=== PATIENT | female | born 1940 | race Caucasian/White ===

== ENCOUNTER 2016-10-08 13:44 | Inpatient (IN) | payer MEDICARE, BC ==
[~2016-10-08] VITALS: Ht 157.5 cm; Wt 55.6 kg
[2016-10-08 13:44] VITALS: BP 127/62; PULSE 84; RESP 16; TEMP 97; O2SAT 96
[2016-10-08] MEDS ORDERED: ASPI81CH CHEW (14:03)
[2016-10-08] MEDS ORDERED: CALC8.5C CHEW (14:03)
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
[2016-10-08] MEDS ORDERED: ONDANSETRON HCL 4 MG/2 ML VIAL IV PRN (15:45)
[2016-10-08] MEDS ORDERED: CHLORHEXIDINE GLUCONATE 2 % 1 PACK (2 CLOTHS) TOP PRN (15:45)
[2016-10-08] MEDS ORDERED: ENALAPRILAT 1.25 MG/ML VIAL IV PRN (15:45)
[2016-10-08] MEDS ORDERED: MISCELLANEOUS NURSING INFORMATION XX SCH (15:45)
[2016-10-08] MEDS ORDERED: ACETAMINOPHEN 325 MG TAB PO PRN (15:45)
[2016-10-08] MEDS ORDERED: SODIUM CHLORIDE 0.9% FLUSH 5 ML FLUSH IVF PRN (15:45)
[2016-10-08 16:00] VITALS: BP 129/62; PULSE 74; PULSE 89; RESP 20; TEMP 97.9; O2SAT 98
[2016-10-08] MEDS: SODIUM CHLOR 0.9% 1000 ML INJ 1,000 ML IV SCH (16:43)
[2016-10-08] MEDS ORDERED: PANTOPRAZOLE SODIUM 40 MG VIAL IVP SCH (17:00)
[2016-10-08 17:01] LABS: BACTERIA, URINE RARE /hpf; BLOOD, URINE SMALL (NEG); COMMENT (UR) CULTURE INDICATED; CULTURE IF INDICATED CULTURE INDICATED; GLUCOSE,URINE TRACE mg/dL (NEG); KETONE, URINE 10 mg/dL (NEG); NITRITE,URINE NEG (NEG); PH, URINE 7.5 (5.0-8.5); SQUAMOUS EPITHELIAL CELL URINE 2 /hpf (0-5); URINE COLOR LIGHT-YELLOW (YELLW/STRAW)
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
[2016-10-08 18:00] VITALS: PULSE 71
[2016-10-08] MEDS: cefTRIAXone INJ 1,000 MG in SODIUM CHLORIDE 0.9% INJ 100 ML IV SCH (18:19)
--- NOTE | 2016-10-08 19:17 | RADRPT ---
EXAM DATE/TIME: 10/08/2016 17:44 [facility] COMPARISON: No previous studies available for comparison. INDICATIONS : Left hand pain. Pain near fifth metacarpal. MEDICAL HISTORY : None. SURGICAL HISTORY : None. ENCOUNTER: Initial ACUITY: 1 day PAIN SCORE: 5/10 LOCATION: Left Hand. FINDINGS: AP, lateral and oblique views of the left hand were obtained. The views are mildly oblique and there is overlying artifact. There is a fracture deformity involving the base of the fifth metacarpal. The phalanges appear grossly intact. The carpus appears intact as well. There is an old fracture deformit y of the distal radius. There is mild osteopenia and degenerative changes. CONCLUSION: 1. Fracture deformity involving the base of the fifth metacarpal. 2. Old fracture deformity involving the distal radius. 3. Oblique views with overlying artifact. Silverio Ford MD on October 08, 2016 at 19:14 Board Certified Radiologist. This report was verified electronically.
--- NOTE | 2016-10-08 19:18 | RADRPT ---
EXAM DATE/TIME: 10/08/2016 17:51 [facility] COMPARISON: No previous studies available for comparison. INDICATIONS : Left wrist pain. MEDICAL HISTORY : None. SURGICAL HISTORY : None. ENCOUNTER: Initial ACUITY: 1 day PAIN SCORE: 5/10 LOCATION: Left wrist. FINDINGS: AP, lateral and oblique views of the left wrist were obtained. The lateral and oblique views are mild ly rotated. There is overlying artifact. A fracture deformity of the base of the fifth metacarpal is again visualized. There is an old fracture deformity of the distal radius. There are degenerative jorge nges in the carpus with sclerosis. There is diffuse osteopenia. CONCLUSION: 1. Fracture deformity involving the base of the fifth metacarpal. 2. Old fracture deformity of the distal radius. 3. Osteopenia and degenerative change. Silverio Ford MD on October 08, 2016 at 19:15 Board Certified Radiologist. This report was verified electronically.
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
[2016-10-08 20:00] VITALS: BP 135/62; PULSE 80; PULSE 91; RESP 21; TEMP 98.3; O2SAT 96
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
[2016-10-08] MEDS: MAGNESIUM HYDROXIDE SUSP 30 ML CUP PO SCH ×2 (21:00→21:06)
[2016-10-08] MEDS: DOCUSATE SODIUM 100 MG CAP PO SCH ×2 (21:00→21:06)
[2016-10-08 22:00] VITALS: PULSE 76
[2016-10-08 22:56] VITALS: O2SAT 99
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
[2016-10-09] VITALS (13 sets, daily range): BP systolic 116–140; BP diastolic 55–63; PULSE 76–90; RESP 14–20; TEMP 96.3–98.5; O2SAT 94–99
[2016-10-09] MEDS: SODIUM CHLOR 0.9% 1000 ML INJ 1,000 ML IV SCH (02:00)
[2016-10-09] MEDS: CHLORHEXIDINE GLUCONATE 2 % 1 PACK (2 CLOTHS) TOP SCH ×2 (04:00→22:19)
[2016-10-09 04:08] LABS: AUTOMATED NEUTROPHIL # 5.5 TH/MM3 (1.8-7.7); BASOPHIL % 0.3 % (0.0-2.0); EOSINOPHIL % 0.3 % (0.0-4.0); HEMATOCRIT 33.6 % (35.0-46.0); HEMO FLAGS DIFF FINAL; LYMPH % 17.9 % (9.0-44.0); LYMPHOCYTE # 1.4 TH/MM3 (1.0-4.8); MEAN CELL VOLUME 93.3 FL (80.0-100.0); MEAN CORPUSCULAR HEMOGLOBIN 31.6 PG (27.0-34.0); MEAN CORPUSCULAR HGB CONC 33.9 % (32.0-36.0); MONO % 9.3 % (0.0-8.0); NEUT % 72.2 % (16.0-70.0); PLATELET COUNT 187 TH/MM3 (150-450); WHITE BLOOD COUNT 7.6 TH/MM3 (4.0-11.0)
[2016-10-09 04:28] LABS: ALT (GPT) 18 U/L (10-53); ANION GAP 10 MEQ/L (5-15); AST (GOT) 16 U/L (15-37); BICARBONATE 25.9 MEQ/L (21.0-32.0); BLOOD UREA NITROGEN 13 MG/DL (7-18); CHLORIDE 107 MEQ/L (98-107); GLOMERULAR FILTRATION RATE 94 ML/MIN (>89); POTASSIUM 3.7 MEQ/L (3.5-5.1); SODIUM (NA) 143 MEQ/L (136-145)
[2016-10-09 04:30] LABS: ALKALINE PHOSPHATASE 70 U/L (45-117); TOTAL BILIRUBIN ADULT 0.4 MG/DL (0.2-1.0)
--- NOTE | 2016-10-09 04:40 | RADRPT ---
EXAM DATE/TIME: 10/09/2016 02:59 [place] COMPARISON: No previous studies available for comparison. INDICATIONS : Shortness of breath. MEDICAL HISTORY : None. SURGICAL HISTORY : None. ENCOUNTER: Initial ACUITY: 2 days PAIN SCORE: 4/10 LOCATION: Bilateral chest FINDINGS: Single AP view of the chest. Linear opacity in the left lung base indicating atelectasis. Cardiomedia stinal silhouette within normal limits. No evidence of pleural effusion or pneumothorax. CONCLUSION: Left basilar atelectasis. No other acute cardiopulmonary disease identified. José Miguel Marcelino MD on October 09, 2016 at 4:37 Board Certified Radiologist. This report was verified electronically.
[2016-10-09] MEDS: DOCUSATE SODIUM 100 MG CAP PO SCH ×2 (09:46→22:17)
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
[2016-10-09] MEDS: RESP: ALBUTEROL 2.5 MG/IPRATROPIUM 0.5 MG NEB (SCH) NEB ×3 (10:52→21:08)
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
[2016-10-09] MEDS: cefTRIAXone INJ 1,000 MG in SODIUM CHLORIDE 0.9% INJ 100 ML IV SCH (18:43)
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
[2016-10-09] MEDS ORDERED: FAMOTIDINE 20 MG TAB PO SCH (21:00)
[2016-10-09] MEDS: MAGNESIUM HYDROXIDE SUSP 30 ML CUP PO SCH (21:00)
[2016-10-10] VITALS: BP 114/56; PULSE 81; RESP 18; TEMP 98.2; O2SAT 95
[2016-10-10] MEDS: RESP: ALBUTEROL 2.5 MG/IPRATROPIUM 0.5 MG NEB (SCH) NEB ×2 (05:40→11:00)
[2016-10-10 06:31] VITALS: BP 121/60; PULSE 78; RESP 16; TEMP 96.9; O2SAT 95
[2016-10-10 07:40] VITALS: BP 108/55; PULSE 80; RESP 18; TEMP 96; O2SAT 96
[2016-10-10] MEDS: DOCUSATE SODIUM 100 MG CAP PO SCH (08:10)
[2016-10-10] MEDS ORDERED: LACTULOSE SYRUP 20 GM/30 ML CUP PO SCH (09:00)
[2016-10-10 10:09] LABS: BICARBONATE 26.4 MEQ/L (21.0-32.0); MAGNESIUM 2.2 MG/DL (1.5-2.5); POTASSIUM 3.5 MEQ/L (3.5-5.1)
[2016-10-10 10:16] LABS: HEMATOCRIT 33.8 % (35.0-46.0); MEAN CELL VOLUME 94.1 FL (80.0-100.0); MEAN CORPUSCULAR HGB CONC 32.9 % (32.0-36.0); PLATELET COUNT 175 TH/MM3 (150-450); RED BLOOD COUNT 3.59 MIL/MM3 (4.00-5.30); REVIEW FLAG FINAL; WHITE BLOOD COUNT 6.3 TH/MM3 (4.0-11.0)
[2016-10-10 11:04] VITALS: O2SAT 94
[2016-10-10 12:02] VITALS: BP 131/60; PULSE 83; RESP 18; TEMP 95.7; O2SAT 96
[2016-10-10] MEDS ORDERED: ACET325T PO (12:49)
[2016-10-10] MEDS ORDERED: DOCU1CAP39 PO (12:49)
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
== END 2016-10-10 15:20 | disposition home or self-care (01) | DRG 83 ==
LOC: NEPE 13:44 → NEDA 14:04 → N03A 16:39 → N05B 10-09 17:37
PROVIDERS: ADMIT Surgery; ATTEND Surgery
PROC: 0HQ1XZZ Repair Face Skin, External Approach (ICD-10-PCS; principal; 2016-10-08)
DX: S06.6X9A Traumatic subarachnoid hemorrhage with loss of consciousness of unspecified duration, initial encounter (principal); G81.94 Hemiplegia, unspecified affecting left nondominant side; J44.9 Chronic obstructive pulmonary disease, unspecified; S62.337A Displaced fracture of neck of fifth metacarpal bone, left hand, initial encounter for closed fracture; S01.81XA Laceration without foreign body of other part of head, initial encounter; S02.82XA Fracture of other specified skull and facial bones, left side, initial encounter for closed fracture; S52.502P Unspecified fracture of the lower end of left radius, subsequent encounter for closed fracture with malunion; M41.9 Scoliosis, unspecified; R35.0 Frequency of micturition; V18.4XXA Pedal cycle driver injured in noncollision transport accident in traffic accident, initial encounter; Y92.410 Unspecified street and highway as the place of occurrence of the external cause; S70.11XA Contusion of right thigh, initial encounter; H73.892 Other specified disorders of tympanic membrane, left ear; Y93.55 Activity, bike riding
CPT/HCPCS: 29125; 70450; 71010; 73110; 73130; 80048; 80053; 81001; 83735; 85025; 85027; 87086; 87641; 94150; 94640; 94664; C9113; J0696; J7030